=== PATIENT | female | born 1970 | race Caucasian/White ===

== ENCOUNTER 2017-08-19 18:49 | Emergency (ER) | payer MEDICARE, MEDICAID ==
[~2017-08-19] VITALS: Ht 154.9 cm; Wt 114.7 kg
[~2017-08-19 18:49] MED LIST: ALBU18HF2 INH; BECL7.3A INH; CHOL100046 PO; HYDR-569 PO; METF750T2 PO; OMEG1CAP PO; OMEG1CAP46 PO; SITA50TA PO
[2017-08-19] MEDS ORDERED: LORazepam 1 MG tablet PO ONE (20:40)
[2017-08-19 21:03] LABS: BASOPHILS # (AUTO) 0.1 X10'3 (0-0.2); BASOPHILS % (AUTO) 0.7 % (0-1); EOSINOPHILS # (AUTO) 0.2 X10'3 (0-0.9); EOSINOPHILS % (AUTO) 1.2 % (0-6); HEMATOCRIT 40.2 % (35.0-45.0); HEMOGLOBIN 13.8 g/dl (12.0-16.0); LYMPHOCYTES # (AUTO) 4.6 X10'3 (1.1-4.8); MEAN CORPUSCULAR HEMOGLOBIN 31.9 PG (27.0-31.0); MEAN CORPUSCULAR HGB CONC 34.3 % (33.0-36.5); MEAN PLATELET VOLUME 8.5 FL (7.4-10.4); MONOCYTES % (AUTO) 7.4 % (2-12); NEUTROPHILS # (AUTO) 7.6 X10'3 (1.8-7.7); NEUTROPHILS % (AUTO) 56.7 % (42-75); PLATELET COUNT 255 X10'3 (140-440); RED BLOOD COUNT 4.32 X10'6 (4.20-5.60); RED CELL DISTRIBUTION WIDTH 15.8 % (11.5-14.5); WHITE BLOOD COUNT 13.4 X10'3 (4.5-11.0)
[2017-08-19 21:10] LABS: ALANINE AMINOTRANSFERASE 56 U/L (12-78); ALBUMIN 3.6 G/DL (3.4-5.0); ALKALINE PHOSPHATASE 107 IU/L (46-116); ANION GAP 9 (8-16); ASPARTATE AMINO TRANSFERASE 38 U/L (10-37); BILIRUBIN,TOTAL 0.3 MG/DL (0.1-1.0); BLOOD UREA NITROGEN 12 MG/DL (7-18); CALCIUM 9.9 MG/DL (8.5-10.1); CHLORIDE 105 MMOL/L (99-107); CREATININE 0.86 MG/DL (0.40-0.90); GLUCOSE 113 MG/DL (70-104); SODIUM 142 MMOL/L (135-145); TOTAL CARBON DIOXIDE 27.6 MMOL/L (24-32); TOTAL PROTEIN 7.2 G/DL (6.4-8.2); eGFR 71 ML/MIN
[2017-08-19 22:20] VITALS: BP 121/53
== END 2017-08-19 22:26 | disposition home or self-care (01) ==
LOC: ER 18:50
DX: F41.9 Anxiety disorder, unspecified (principal); E78.00 Pure hypercholesterolemia, unspecified; J45.909 Unspecified asthma, uncomplicated; Z90.710 Acquired absence of both cervix and uterus; Z90.79 Acquired absence of other genital organ(s); Z87.891 Personal history of nicotine dependence; E11.9 Type 2 diabetes mellitus without complications; Z87.442 Personal history of urinary calculi; Z88.2 Allergy status to sulfonamides; Z88.6 Allergy status to analgesic agent; Z88.5 Allergy status to narcotic agent; Z88.7 Allergy status to serum and vaccine; Z88.8 Allergy status to other drugs, medicaments and biological substances
CPT/HCPCS: 36415; 71045; 80053; 83735; 83880; 84484; 85025; 93005; 99285

== ENCOUNTER 2019-08-01 22:02 | Emergency (ER) | payer BC, MEDICAID, MEDICARE ==
[~2019-08-01] VITALS: Ht 154.9 cm; Wt 111.3 kg
[~2019-08-01 22:02] MED LIST changes: +HYDR-4383 PO; -HYDR-569 PO; -METF750T2 PO; +METF750T46 PO
[2019-08-01] MEDS ORDERED: acetaminophen 325mg tablet PO ONE (23:15)
[2019-08-02 00:42] VITALS: BP 135/65
== END 2019-08-02 03:30 | disposition home or self-care (01) ==
LOC: ER 22:03
DX: S62.396A Other fracture of fifth metacarpal bone, right hand, initial encounter for closed fracture (principal); E78.00 Pure hypercholesterolemia, unspecified; J45.909 Unspecified asthma, uncomplicated; E11.9 Type 2 diabetes mellitus without complications; M79.7 Fibromyalgia; F12.90 Cannabis use, unspecified, uncomplicated; Z90.49 Acquired absence of other specified parts of digestive tract; Z98.890 Other specified postprocedural states; Z90.710 Acquired absence of both cervix and uterus; Z56.0 Unemployment, unspecified; Z87.442 Personal history of urinary calculi; Z88.7 Allergy status to serum and vaccine; Z88.2 Allergy status to sulfonamides; Z88.5 Allergy status to narcotic agent; Z88.6 Allergy status to analgesic agent; Z79.899 Other long term (current) drug therapy; W01.0XXA Fall on same level from slipping, tripping and stumbling without subsequent striking against object, initial encounter; Y93.89 Activity, other specified; Y92.89 Other specified places as the place of occurrence of the external cause; Y99.9 Unspecified external cause status
CPT/HCPCS: 29125; 73130; 99283

== ENCOUNTER 2022-01-06 05:41 | Emergency (ER) | payer MEDICAID ==
[~2022-01-06] VITALS: Ht 154.9 cm; Wt 113.6 kg
[~2022-01-06 05:41] MED LIST changes: -OMEG1CAP PO; +OMEG1CAP61 PO
[2022-01-06 05:44] VITALS: BP 133/88
[2022-01-06] MEDS ORDERED: acetaminophen 325mg tablet PO ONE (06:25)
[2022-01-06] MEDS ORDERED: ondansetron 4mg rapidly disintigrating tab PO ONE (06:25)
[2022-01-06] MEDS ORDERED: ketorolac trometh inj. 60 MG/2 ML VIAL IM ONE (07:15)
[2022-01-06 07:18] LABS: CLARITY,URINE SLIGHTLY CLOUDY (Clear); GLUCOSE, URINE NEGATIVE (Neg); KETONES,URINE NEGATIVE (Neg); LEUKOCYTE ESTERASE ,URINE NEGATIVE (Neg); NITRITES, URINE NEGATIVE (Neg); OCCULT BLOOD,URINE SMALL (Neg); PROTEIN,URINE NEGATIVE (Neg); UROBILINOGEN,URINE 0.2 E.U/dL (0.2-1.0)
[2022-01-06 07:38] LABS: BASOPHILS # (AUTO) 0.1 X10'3 (0-0.2); BASOPHILS % (AUTO) 1.2 % (0-1); EOSINOPHILS # (AUTO) 0.1 X10'3 (0-0.9); EOSINOPHILS % (AUTO) 0.8 % (0-6); HEMATOCRIT 43.8 % (35.0-45.0); HEMOGLOBIN 14.4 g/dl (12.0-16.0); LYMPHOCYTES # (AUTO) 4.8 X10'3 (1.1-4.8); LYMPHOCYTES % (AUTO) 39.6 % (21-51); MEAN CORPUSCULAR HEMOGLOBIN 31.7 PG (27.0-31.0); MEAN CORPUSCULAR VOLUME 96.3 FL (78-98); MONOCYTES # (AUTO) 0.8 X10'3 (0-0.9); MONOCYTES % (AUTO) 6.8 % (2-12); NEUTROPHILS # (AUTO) 6.3 X10'3 (1.8-7.7); NEUTROPHILS % (AUTO) 51.6 % (42-75); PLATELET COUNT 254 X10'3 (140-440); RED BLOOD COUNT 4.55 X10'6 (4.20-5.60); RED CELL DISTRIBUTION WIDTH 14.6 % (11.5-14.5); WHITE BLOOD COUNT 12.2 X10'3 (4.5-11.0)
[2022-01-06 07:45] LABS: COLOR,URINE STRAW (Yellow); UA COLLECTION TYPE CLN CATCH MIDSTREAM
[2022-01-06 07:46] LABS: BACTERIA,URINE FEW /HPF (Neg); MUCUS STRANDS FEW /LPF (Neg); RBC,URINE 0-2 /HPF (0-2); SQUAMOUS EPITHELIAL CELL,UR MODERATE /LPF (FEW); WBC,URINE 0-4 /HPF (0-4)
[2022-01-06 08:04] LABS: ALANINE AMINOTRANSFERASE 37 U/L (12-78); ALBUMIN 3.9 G/DL (3.4-5.0); ALKALINE PHOSPHATASE 121 IU/L (46-116); ANION GAP 12 (8-16); ASPARTATE AMINO TRANSFERASE 30 U/L (10-37); BILIRUBIN,TOTAL 0.4 MG/DL (0.1-1.0); BLOOD UREA NITROGEN 11 MG/DL (7-18); BUN/CREATININE RATIO 13.4 (6.6-38.0); CALCIUM 9.4 MG/DL (8.5-10.1); CHLORIDE 106 MMOL/L (99-107); CREATININE 0.82 MG/DL (0.40-0.90); GLUCOSE 145 MG/DL (70-104); LIPASE 412 U/L (73-393); POTASSIUM 3.9 MMOL/L (3.5-5.1); SODIUM 141 MMOL/L (135-145); TOTAL CARBON DIOXIDE 23.1 MMOL/L (24-32); TOTAL PROTEIN 7.7 G/DL (6.4-8.2); eGFR 74 ML/MIN
[2022-01-06] MEDS ORDERED: OXYC-145 PO ×2 (09:30→09:32)
[2022-01-06] MEDS ORDERED: ONDA8TAB13 PO (09:30)
== END 2022-01-06 09:49 | disposition home or self-care (01) ==
LOC: ER 05:42
DX: K85.90 Acute pancreatitis without necrosis or infection, unspecified (principal); R11.2 Nausea with vomiting, unspecified; E78.00 Pure hypercholesterolemia, unspecified; J45.909 Unspecified asthma, uncomplicated; E11.9 Type 2 diabetes mellitus without complications; F41.9 Anxiety disorder, unspecified; F31.9 Bipolar disorder, unspecified; F12.90 Cannabis use, unspecified, uncomplicated; Z87.442 Personal history of urinary calculi; Z90.89 Acquired absence of other organs; Z90.49 Acquired absence of other specified parts of digestive tract; Z90.710 Acquired absence of both cervix and uterus; Z98.890 Other specified postprocedural states; Z56.0 Unemployment, unspecified; Z88.2 Allergy status to sulfonamides; Z88.5 Allergy status to narcotic agent; Z88.8 Allergy status to other drugs, medicaments and biological substances; Z79.899 Other long term (current) drug therapy
CPT/HCPCS: 36415; 74176; 80053; 81001; 83690; 84484; 85025; 93005; 96372; 99285; J1885

== ENCOUNTER 2024-12-06 14:44 | Outpatient (CLI) | payer MEDICARE, MEDICAID ==
[~2024-12-06 14:44] MED LIST changes: +ONDA-245 PO; +OXYC-145 PO
--- NOTE | 2024-12-06 15:46 | RADIOLOGY REPORT ---
EXAM: CT CT LOWER EXTREMITY INDICATION: PRIMARY OSTEOARTHRITIS, RIGHT KNEE TECHNIQUE: Axial images of right lower extremity have been obtained along with coronal and sagittal reformatted images. All CT scans at this facility use dose modulation, iterative reconstruction, and/or weight based dosing when appropriate to reduce radiation dose to as low as reasonably achievable. COMPARISON: None FINDINGS: BONES: No CT evidence of an acute fracture or aggressive osseous lesion. MUSCLES: No abnormal attenuation. JOINT SPACES: No joint effusion. chondrocalcinosis of the medial and lateral menisci. soft tissue calcification the anterior cruciate ligament TENDONS/LIGAMENTS: Intact. OTHER: None. IMPRESSION: 1. No CT evidence of an acute fracture. 2. Chondrocalcinosis of the medial and lateral menisci. 3. No knee joint effusion. 4. Calcification along the anterior cruciate ligament which may be sequelae of prior injury
== END 2024-12-06 23:59 | disposition home or self-care (01) ==
LOC: RAD 14:44
PROVIDERS: ATTEND Orthopaedic Surgery
DX: M11.261 Other chondrocalcinosis, right knee (principal); M17.11 Unilateral primary osteoarthritis, right knee
CPT/HCPCS: 73700

== ENCOUNTER 2025-01-05 07:30 | Inpatient (IN) | payer MEDICARE, MEDICAID ==
[2024-12-29 10:27] LABS: MEAN PLATELET VOLUME 8.4 FL (7.4-10.4); PRE OP HEMATOCRIT 43.1 % (35.0-45.0); PRE OP HEMOGLOBIN 14.3 g/dL (12.0-16.0); PRE OP PLATELET COUNT 253 X10'3 (140-440); PRE OP WHITE BLOOD COUNT 6.8 10'3 (4.8-10.8); RED CELL DISTRIBUTION WIDTH 13.8 % (11.5-14.5)
[2024-12-29 10:51] LABS: CREATININE 0.78 MG/DL (0.40-0.90); PRE OP ALT 19 U/L (30-65); PRE OP ANION GAP 6 (8-16); PRE OP AST 19 U/L (10-37); PRE OP BILIRUB, TOTAL 0.5 MG/DL (0.0-1.0); PRE OP GLUCOSE 85 MG/DL (70-104); PRE OP POTASSIUM 4.0 MMOL/L (3.4-5.1); PRE OP SODIUM 143 MMOL/L (135-145); TOTAL CARBON DIOXIDE 29.0 MMOL/L (24-32); eGFR 77 ML/MIN
[~2025-01-05] VITALS: Ht 157.5 cm; Wt 71.7 kg
[~2025-01-05 07:30] MED LIST changes: -ALBU18HF2 INH; -BECL7.3A INH; +CALC600T14 PO; -CHOL100046 PO; +CHOL20003; +CYAN-34 PO; +DOCU-392 PO; -HYDR-4383 PO; +LAMO100T PO; -METF750T46 PO; +MULT-1085 PO; -OMEG1CAP46 PO; -OMEG1CAP61 PO; -ONDA-245 PO; -OXYC-145 PO; -SITA50TA PO; +TIRZ7.5P SQ; +ringers solution, lacted 1,000 ML IV SCH
[2025-01-12] VITALS (22 sets, daily range): BP systolic 107–155; BP diastolic 32–99; PULSE 57–92; RESP 12–76; TEMP 96.3–98.5; O2SAT 97–100
[2025-01-12] MEDS: tranexamic acid 1gm/0.7% sal. 100 ML IV ONE ×2 (06:59→23:16)
[2025-01-12] MEDS: ceFAZolin 2gm/dext,iso 50mL 50 ML IV ONE ×2 (06:59→23:16)
[2025-01-12] MEDS: ringers solution, lacted 1,000 ML IV SCH ×2 (07:02→23:15)
[2025-01-12] MEDS: VANCOMYCIN/H2O 1.5g/300mL PB 300 ML IV ONE ×2 (07:02→23:15)
[2025-01-12] MEDS ORDERED: vancomycin 1,000mg inj ONE (07:52)
[2025-01-12] MEDS ORDERED: tetracaine 1% (10mg/ml) pres. free inj. ONE (08:10)
[2025-01-12] MEDS ORDERED: esmolol inj. 0 ML IV ONE (08:12)
[2025-01-12] MEDS ORDERED: fentaNYL/PF 50MCG/1 ML 2ML syringe ONE (08:12)
[2025-01-12] MEDS ORDERED: MIDAZolam 1mg/ml 10ml vial ONE (08:13)
[2025-01-12] MEDS ORDERED: LIDOcaine 1% (10mg/ml) 2ml vial ONE (08:52)
[2025-01-12] MEDS ORDERED: propofol inj 20 ML IV ONE ×3 (09:16)
[2025-01-12] MEDS ORDERED: ePHEDrine 50MG/ML INJ. ONE (09:17)
[2025-01-12] MEDS ORDERED: hydrALAZINE 20mg/ml inj. IV PRN (09:55)
[2025-01-12] MEDS ORDERED: labetalol 5mg/ml 20ml inj. IV PRN (09:55)
[2025-01-12] MEDS ORDERED: fentaNYL/PF 50MCG/1 ML 2ML syringe IV PRN ×2 (09:55)
--- NOTE | 2025-01-12 10:04 | ANESTHESIA RECORDS ---
Nerve Block Providers to CC ~ Diagnosis: Nerve Block requested by: MICHAEL VERNON MD Neuraxial/Peripheral Nerve Block requested for Post-operative analgesia by Physician above DIAGNOSIS: Post-operative pain. (Body Area) Shoulder: [ ] Arm: [ ] Hand: [ ] Hip: [ ] Knee: [___Right ] Ankle: [ ] Foot: [ ] Leg: [ ] Abdomen: [ ] Other: [ ] Post-operative pain expected to be/is inadequately managed by oral or IV medicines. Regional anesthetic expected to facilitate rehabilitation and/or discharge from facility. Other:[ ] Procedure Performed: Femoral / Saphenous: Right Other: Right IPACK Time out Done?: Yes Time of Time out: 08:42 Procedure Details: PROCEDURE DETAILS: Risks, benefits and alternatives explained Informed consent obtained, and patient wishes to proceed Conscious sedation with indicated monitors Patient positioned, pertinent anatomy defined, sterile technique used Needle used: [ ] 3 1/8 inch Stimuplex Ultra 22ga [ ] 4 inch Stimuplex Ultra 20ga [X ] 6 inch Stimuplex Ultra 20ga [X ] 6 inch, Quikbloc over the needle catheter set 20ga [ ] 4 inch Quikbloc over the needle catheter set 20ga [ ]Other: [ ] Loss of twitch @ [ ]mA [ X] Single InjectionIPACK [X ] Catheter ADDUCTOR CANAL Ultrasound Guidance Used: [X ] Yes [ ] No Attempts:[_1,1 ] Medicines injected: [ ]Clonidine Amt:[ ] [ ]Dexamethasone Amt:[ ] [ X ]Ropivacaine Amt:[_0.5% 40 C.C ] [ ]Bupivacaine Amt:[ ] [ ]Lidocaine Amt:[ ] [ ]Exparel 1.33%:[ ] [ ]Epinephrine Amt[ ] [ ]Other: [ ] Intermittent aspiration during local anesthetic administration No symptoms of intraneural or intravenous injection Patient tolerated procedure well Comments Right IPACK block: Right posterior thigh is examined with Ultrasound and Posterior knee capsule, Popliteal vessesl are identified. Needle is placed in between and 15 c.c local mix is injected.spread is noted. Ultrasound image is captured. Right Adductor canal catheter placement: Right mid medial thigh is examined with Ultrasound and Adductor canal, vesssels in the canal are identified. Catheter over neeedle is placed in the canal.After negative aspiration Local mix 25 c.c is injected. Spread is noted.Needle is removed,catheter is secured. sterile dressings applied. Ultrasound images captured and documented. On q pump is ordered. KWAN MANCUSO MD Jan 12, 2025 10:04
[2025-01-12] MEDS ORDERED: morphine 10mg/ml inj. ONE (12:05)
[2025-01-12] MEDS ORDERED: PCA WASTE DOCUMENTATION 1 MG ML MC SCH (12:10)
--- NOTE | 2025-01-12 12:26 | OPERATIVE REPORT ---
Operative Report Providers to CC ~ Date of Procedure: Jan 12, 2025 Pre-Operative Diagnosis: Degenerative joint disease right knee Post-Operative Diagnosis SAME as PRE-Op Procedure Performed Right total knee arthroplasty cemented Surgeon: Michael Vernon MD Petroleum Production Engineer Esvin Salinas MD Anesthesiologist: Agustin Segura Type of Anesthesia: Regional (Adductor canal block and iPACK block), Spinal Findings: Patient was found to have extensive degenerative changes of the patellofemoral joint grade 3 and four chondromalacia extensive cardiac grade 3 chondromalacia of the medial and lateral compartment extensive degenerative changes and tearing of the medial and lateral meniscus Complications None Prosthetics\Implants used: Attune to pew knee system size four right femur size three tibial base plate cemented with PMMA antibiotic cement size 38 anatomic patella. 10 mm polyethylene liner medial congruent Estimated Blood Loss: 150 cc Specimen Removed: Degenerative bone, meniscal tissue, cruciate tissue Description of Procedure: Patient was taken to the operating room after I had obtained informed consent signing her right knee. I started intravenous antibiotics per prophylaxis protocol patient was taken to the operating room and given a spinal anesthetic placed in the operating room table in the supine position her left leg was placed in an SCD device her right leg was placed in a well-padded upper thigh tourniquet and prepped and draped in usual sterile orthopaedic fashion surgical time-out was taken per protocol and the case was begun. Esmarch was used for exsanguination. Tourniquet was insufflated. IMP leg thomas was used. Iodoform skin protection was used throughout. Anterior incision made of proximally 8 in long medial parapatellar approach was accomplished in the standard fashion. During the approach what appeared to be remnants of a medial meniscal cyst was excised. Potential for a extension of the meniscal cyst posteriorly was left as to not complicate her postop recovery. The patella was exposed and inverted for visualization and had grade 3 and grade 4 degenerative chondromalacia change using a freehand technique patella was articular surface was removed with size of the 38 and drilled in preparation for cementation fixation of the anatomic replacement prosthesis it was protected with the patellar skin and subluxed laterally to expose the distal femur. Patient mass cutting box were used to make the distal femoral and proximal tibial osteotomy cuts this is done after the meniscectomy performed in cruciate ligament risks tissues were released this aided in exposure. Flexion-extension gaps were equalized of 10 mm. Femoral component was sized to a size four the ti jose raul was sized to a size. Trial components were placed in the knee the knee was stable achieving full extension and flexion in maintenance of her normal anatomic alignment. Patella tracked centrally with the trial prosthesis without difficulty. Trial components were removed cut surfaces were irrigated and dried and fixation with the cement using pressure eyes technique of the tibia starting 1st and then followed by the femur placing a 10 mm temporary liner and placed in the knee and uric full extension and then cementing of the patella in place with a patellar clamp allowing 15 minutes of the knee was irrigated with the cement to cure. Any and all excess cement was removed. Tourniquet was released hemostasis was ensured and aided with electrocautery. This is a supported with 10 cc of thrombin spray. Also add was a g of vancomycin powder intra-articularly for prophylaxis. He was taken and placed in a 30 of knee flexion after the knee was tested achieve full range of motion with the definitive 10 mm polyethylene liner closure was accomplished with 2. Ethibond sutures interrupted with a medial parapatellar approach subcuticular tissue was closed with 2-0 Vicryl and the skin was closed with skin amanda silk dressing and island op-site dressing was used for the incision. Good distal pulses had returned to the foot with good capillary refill to all digits. Patient was now turned over to the anesthesiologist for his reasonable blocks. After this was completed the patient was transferred to the recovery room in stable condition there were no apparent perioperative complications Counts repoted as correct: Yes MICHAEL VERNON MD Jan 12, 2025 12:26
[2025-01-12] MEDS: ROPIVAcaine 0.2% (10 MG/5 ML) BOLUS INJECTION ADDCANAL PRN (12:49)
[2025-01-12] MEDS: ondansetron/PF 4mg/2ml inj IV PRN (12:56)
[2025-01-12] MEDS: morphine 4 MG/ML inj SYRINge IV PRN (13:06)
--- NOTE | 2025-01-12 13:52 | RADIOLOGY REPORT ---
EXAM: DI KNEE LIMITED (AP/LAT) CLINICAL INDICATION: Postop RT. KNEE TECHNIQUE: DI KNEE LIMITED (AP/LAT) Comparison: HAND, COMPLETE (3VW MIN) on DOS: 08/01/19 FINDINGS/IMPRESSION: Right total knee artrhoplasty.
[2025-01-12] MEDS: potassium Cl 20mEq in NS 1,000 ML IV SCH (15:20)
[2025-01-12] MEDS: ceFAZolin/D5W- 1GM premix 50 ML IV SCH (16:20)
[2025-01-12] MEDS: vancomycin/NS 1 GM ADD-VANTAGE 250 ML IV SCH (21:07)
[2025-01-12] MEDS: ROPIVAcaine 0.2%/PF PUMP/bolus 545 ML ADDCANAL SCH (23:15)
[2025-01-13] VITALS (8 sets, daily range): BP systolic 126–146; BP diastolic 62–80; PULSE 68–96; RESP 12–16; TEMP 98.3–99.3; O2SAT 97–100
[2025-01-13] MEDS: oxyCODONE IR 5mg (immed. release) tablet PO PRN ×2 (01:14→08:50)
[2025-01-13] MEDS: ondansetron/PF 4mg/2ml inj IV PRN (04:49)
[2025-01-13] MEDS: calcium carbonate 500mg tablet PO SCH (08:00)
[2025-01-13] MEDS: cholecalciferol (vitamin D3) 1,000 unit (25mcg) tablet PO SCH (08:00)
[2025-01-13] MEDS: docusate sod 100mg capsule PO SCH (09:01)
[2025-01-13] MEDS: multivitamins, therapeutics tablet PO SCH (09:02)
[2025-01-13 11:59] LABS: MEAN PLATELET VOLUME 9.5 FL (7.4-10.4); RED CELL DISTRIBUTION WIDTH 13.4 % (11.5-14.5)
[2025-01-13 12:12] LABS: CREATININE 0.55 MG/DL (0.40-0.90); TOTAL CARBON DIOXIDE 26.2 MMOL/L (24-32); eCRCL 94 ML/MIN; eGFR > 90 ML/MIN
[2025-01-13] MEDS: JUVEN Smoothie Arginine/Glut./Ca2+Bmb (Juven 19.3pkt) 240ml cup PO SCH (17:36)
--- NOTE | 2025-01-13 19:48 | CONSULTATION REPORT ---
Consult Providers to CC ~ History of Present Illness Reason for Admit\\Complaint: Hospitalist consult postop right total knee arthroplasty History of Present Illness This is a 54-year-old female who is status post right total knee arthroplasty in ganglion cyst removal by Dr. Neville yesterday 01/12/[address] Neville requested the hospitalist service evaluate the patient. No labs were ordered I have ordered a CBC and a CMP. The patient worked with physical therapy however walked 50 ft and has not yet walk stairs.. Physical therapy is working with the patient tomorrow. Allergies: Coded Allergies: Tetanus Toxoid,Fluid (Verified Allergy, Severe, "FATAL", 01/04/25) gabapentin (Verified Allergy, Severe, 01/12/25) Patient states gabapentin makes her suicidal tetanus and diphtheria toxoids (Verified Allergy, Severe, MUSCLE ATROPHY, NEAR A CHILD., 04/08/13) Sulfa (Sulfonamide Antibiotics) (Verified Allergy, Intermediate, RASH/VOMIT, 01/04/25) codeine (Verified Allergy, Intermediate, RASH/VOMIT, 01/04/25) tramadol (Verified Allergy, Unknown, 01/19/09) ibuprofen (Verified Adverse Reaction, Unknown, stomach upset/VOMIT, 01/04/25) ketorolac (Verified Adverse Reaction, Unknown, stomach upset, 01/06/22) ketorolac tromethamine (Verified Adverse Reaction, Unknown, 12/06/23) Uncoded Allergies: TAPE (Allergy, Intermediate, RASH, 01/04/25) Home Medications Home Medications Active Reported Calcium (Calcium Carbonate) 600 Mg Tablet 1 Tab PO DAILY Mounjaro (Tirzepatide) 7.5 Mg/0.5 Ml Pen.injctr 7.5 Mg SQ QMONDAY Vitamin B-12 (Cyanocobalamin (Vitamin B-12)) 1,000 Mcg Capsule 1 Cap PO MWF 30 Days Multi Vitamin Daily (Multivitamin) 1 Each Tablet 1 Each PO DAILY Docusate Sodium 100 Mg Capsule 1 Cap PO BID Vitamin D3 (Cholecalciferol (Vitamin D3)) 50 Mcg (2000 Unit) Tablet 1 Tab BID LaMICtal tablet (Lamotrigine) 100 Mg Tablet 1 Tab PO BID Past Medical History Past Medical History Interstitial cystitis Spinal meningitis Hyperlipidemia Pancreatitis Kidney stones Kre-[id number]-[id number] diabetes mellitus Fibromyalgia Anxiety/depression Past Surgical History Surgical History Comment Bilateral oophorectomy, hysterectomy, appendectomy, cholecystectomy, tonsillectomy,gastric sleeve, bilateral carpal tunnel surgery, bilateral cubital tunnel surgery Family History Family History: FH: CHF (congestive heart failure) MOTHER FH: COPD (chronic obstructive pulmonary disease) MOTHER FH: colon cancer FATHER, , Age: 56, Cause: Drowned FH: mitral insufficiency MOTHER FH: skin cancer MOTHER Fibromyalgia MOTHER Osteoarthritis MOTHER Past Social History Social History Comment Does not smoke cigarettes, drink alcohol, occasionally smokes marijuana. Full code status ROS ROS Except for positives in the HPI the rest of the 14 point review systems is negative Exam Vitals: Vital Signs Date Time Temp Pulse Resp B/P (MAP) Pulse Ox O2 Delivery O2 Flow Rate FiO2 01/13/25 16:52 16 01/13/25 10:00 98.9 81 133/75 (94) 98 Room Air 01/12/25 20:00 0.0 General: Gen. No acute distress alert and oriented 4 Lungs clear to ascultation bilaterally, no wheezes rales or rhonchi appreciated Heart normal sinus rhythm no murmurs rubs or clicks noted Abdomen soft nontender bowel sounds are normoactive Lower extremities no clubbing cyanosis, nor edema appreciated left, knee brace is present with some mild distal edema Diagnostic Data Last Recorded Lab Results: 01/13/25 1105 01/13/25 1105 Problems: (1) Osteoarthritis of right knee Additional Plan # osteoarthritis of the right knee Status post right total knee arthroplasty on 01/12/[address] Mayur neville Continue physical therapy the patient ambulated 50 ft however has a stairs to negotiate at home. # diabetes mellitus Fasting blood sugar in the morning is with the monitored Status post gastric sleeve with a weight loss # interstitial cystitis Follow up with Urology PRN # leukocytosis likely leukemoid reaction from surgery CBC is ordered in the a.m. # DVT prophylaxis Aspirin SCDs I spent a total of 17 minutes on reviewing various resuscitative measures/ ACP with the patient at the time of admission. The patient has decided on full code status Date of Service: Jan 13, 2025 Billing Provider: NIRAV OBREGON DO Common Visit Codes: [id number] INP/OBS CARE (HIGH) Secondary Visit Codes: [id number] CARE PLAN 30 MINUTES NIRAV OBREGON DO Jan 13, 2025 19:48
[2025-01-14 05:00] VITALS: BP 113/84; PULSE 94; RESP 18; TEMP 96.5; O2SAT 99
[2025-01-14 06:55] LABS: MEAN PLATELET VOLUME 9.2 FL (7.4-10.4); RED CELL DISTRIBUTION WIDTH 13.3 % (11.5-14.5)
[2025-01-14 07:29] LABS: CREATININE 0.52 MG/DL (0.40-0.90); TOTAL CARBON DIOXIDE 26.3 MMOL/L (24-32); eCRCL 99 ML/MIN; eGFR > 90 ML/MIN
[2025-01-14] MEDS: cyanocobalamin 500mcg tablet PO SCH (09:42)
[2025-01-14 10:00] VITALS: BP 114/62; PULSE 89; RESP 14; TEMP 97.8; O2SAT 99
--- NOTE | 2025-01-14 18:43 | DISCHARGE SUMMARY ---
Discharge Summary Providers to CC ~ Discharge Summary Admission Diagnosis: Degenerative joint disease right knee Hospital Course DATE OF ADMISSION: 01/12/2025 DATE OF DISCHARGE: 01/14/2025 Discharge Diagnosis\Comment: Degenerative joint disease of the right knee, diabetes mellitus, interstitial cystitis, leukocytosis Operations\Procedures: Right total knee arthroplasty Consultants: Dr. Mayur Neville orthopedic surgeon Complications: None Condition on DC: Stable Continued Medications: Calcium Carbonate (Calcium) 600 Mg Tablet 1 TAB PO DAILY Cholecalciferol (Vitamin D3) (Vitamin D3) 50 Mcg (2000 Unit) Tablet 1 TAB BID Cyanocobalamin (Vitamin B-12) (Vitamin B-12) 1,000 Mcg Capsule 1 CAP PO MWF for 30 Days, #30 CAP 0 Refills Docusate Sodium (Docusate Sodium) 100 Mg Capsule 1 CAP PO BID Lamotrigine (LaMICtal tablet) 100 Mg Tablet 1 TAB PO BID Multivitamin (Multi Vitamin Daily) 1 Each Tablet 1 EACH PO DAILY, TAB Tirzepatide (Mounjaro) 7.5 Mg/0.5 Ml Pen.injctr 7.5 MG SQ QMONDAY Discharge Summary: The patient had a right total knee arthroplasty and ganglion cyst removal on the and Dr. Neville had consulted the hospitalist team on the . There were no labs ordered I had ordered a CBC in [place] a [place] [address] with a neutrophil% of 76.4% on 01/13/2025 the rest of the labs were all unremarkable and within normal limits the patient is white blood cell count normalized the following morning, the patient has history of diabetes however this has a gastric sleeve her blood glucose was 119 fasting on the and 120 fasting on the . The patient takes Mounjaro which will be continued. The patient has a history of interstitial cystitis for which she will follow with her urologist. The patient worked with physical therapy and did okay on the however required ambulating with stairs- the patient worked with physical therapy on the and was cleared to be discharged with home health Gen. No acute distress alert and oriented 4 Lungs clear to ascultation bilaterally, no wheezes rales or rhonchi appreciated Heart normal sinus rhythm no murmurs rubs or clicks noted Abdomen soft nontender bowel sounds are normoactive Lower extremities no clubbing cyanosis, nor edema appreciated left, knee brace is present with some mild distal edema The patient felt ready to be discharged and was medically cleared to be discharged on 01/14/2025 The patient was seen and evaluated on day of discharge. Time spent on discharge 25 minutes *Problems/Diagnosis: (1) Osteoarthritis of right knee Total Time Spent on D/C: Up to 30 Minutes Date of Service: Jan 14, 2025 Billing Provider: NIRAV OBREGON DO Common Visit Codes: 46183-YUH/OBS DISCH DAY <30MIN NIRAV OBREGON DO Jan 14, 2025 18:43
[2025-01-17] MEDS ORDERED: TIRZEPATIDE 7.5 MG SQ SCH (08:00)
== END 2025-01-14 12:20 | disposition home health service (06) | DRG 470 ==
LOC: PAS IN 01-12 06:19 → ORTHO 4S 01-12 14:04
PROVIDERS: ADMIT Orthopaedic Surgery; ATTEND Orthopaedic Surgery
PROC: 0JH80WZ Insertion of Totally Implantable Vascular Access Device into Abdomen Subcutaneous Tissue and Fascia, Open Approach (ICD-10-PCS; 2025-01-12)
PROC: 3E0T3BZ Introduction of Anesthetic Agent into Peripheral Nerves and Plexi, Percutaneous Approach (ICD-10-PCS; 2025-01-12)
PROC: 0SRC0J9 Replacement of Right Knee Joint with Synthetic Substitute, Cemented, Open Approach (ICD-10-PCS; principal; 2025-01-12 08:32)
DX: M17.11 Unilateral primary osteoarthritis, right knee (principal); M23.000 Cystic meniscus, unspecified lateral meniscus, right knee; M22.41 Chondromalacia patellae, right knee; E78.5 Hyperlipidemia, unspecified; E11.9 Type 2 diabetes mellitus without complications; F32.A Depression, unspecified; F41.9 Anxiety disorder, unspecified; D72.823 Leukemoid reaction; M67.461 Ganglion, right knee; N30.10 Interstitial cystitis (chronic) without hematuria; M79.7 Fibromyalgia; Z90.710 Acquired absence of both cervix and uterus; Z90.49 Acquired absence of other specified parts of digestive tract; Z98.84 Bariatric surgery status; Z80.0 Family history of malignant neoplasm of digestive organs; Z88.1 Allergy status to other antibiotic agents; Z88.8 Allergy status to other drugs, medicaments and biological substances; Z88.7 Allergy status to serum and vaccine
CPT/HCPCS: 36415; 73560; 80048; 80053; 82948; 85025; 87081; 97110; 97116; 97161; 97530; A4215; A5200; A6253; A6258; A6446; A6449; A6454; A7000; C1713; C1776; C9250; G0378; J0690; J0780; J1171; J2003; J2250; J2270; J2274; J2405; J2704; J2795; J3010; J3373; J3375; J3480; J3490; J7120